=== PATIENT | female | born 1990 | race Caucasian/White ===

== ENCOUNTER → 2019-03-20 | Outpatient (CLI) | payer BC ==
--- NOTE | 2019-03-20 16:39 | FL ---
EXAMINATION TYPE: FL hysterosalpingography DATE OF EXAM: 03/20/2019 CLINICAL HISTORY: Infertility. TECHNIQUE: Fluoroscopy. No fluoroscopy time used. 10 cc of Omnipaque 210 was drawn but not injected COMPARISON: None. FINDINGS: Procedure of fluoroscopic assisted hysterosalpingogram explained to patient. Benefits, alte rnatives, and risks were discussed. Informed consent was obtained. Preprocedure interventional technologist image of pelvis shows no suspicious abnormality. Sterile technique utilized for pelvic exam. Speculum was introduced several times. There is adequate visualization of cervical os. The os continually points inferiorly and to the left, several attempts at repositioning were unsuccessful. It is cleansed several times with Betadine. Catheter despite mult iple attempts cannot be successfully placed through the cervical os into the endometrial canal. I exp lained to patient that project construction manager will have to do procedure as is more comfortable manipulating ce rvix then radiologist. There was tiny amount of bleeding from the cervical os on trying to position catheter into the endometrial canal. At this point procedure was terminated. It was explained patient will not be charged for today's procedure and to return when her obstetricia n is available to perform procedure. IMPRESSION: As Above.
== END | disposition home or self-care (01) ==
LOC: RADUSWWP 13:14
PROVIDERS: ATTEND Obstetrics & Gynecology Obstetrics
DX: N97.9 Female infertility, unspecified (principal)
CPT/HCPCS: 58340; 74740

== ENCOUNTER → 2019-05-08 | Outpatient (CLI) | payer BC ==
--- NOTE | 2019-05-08 10:01 | P.OP ---
Date of Procedure: 05/08/19 Preoperative Diagnosis: Family planning Postoperative Diagnosis: Same Procedure(s) Performed: Hysterosalpingogram Anesthesia: none Surgeon: Karoline De Leon Estimated Blood Loss (ml): 0 IV fluids (ml): 0 Urine output (ml): 0 Pathology: none sent Condition: stable Disposition: observation Indications for Procedure: This 28-year-old 0 has been trying for for multiple months without success. Patient is noted to have regular cycles and positive ovulation predictor kit. Patient presents today for evaluation of the uterine cavity and tubal patency. Operative Findings: Normal appearing uterine size, shape with spillage of radiopaque dye bilaterally, radiologist in room and confirms via fluoroscopy Description of Procedure: Patient was seen in the radiology suite. Procedure was reviewed and questions were answered. Patient was set in the Alexia lithotomy position a speculum exam was performed. The cervix was washed with Betadine 2. The hysterosalpingogram catheter was then placed through the cervix and toward the uterus the fundus was reached in the balloon was insufflated with approximately 5 mL of air. A syringe was then attached with radiopaque dye patient was positioned in a supine position fluoroscopy was begun and the dye was pushed toward the uterus. Uterine shape and size was normal tubal patency was noted bilaterally. Multiple pictures were taken radiology was in agreement that tubal patency was achieved. Patient was repositioned once again the balloon was let down and the catheter removed. The speculum was removed without difficulty. Next Patient tolerated procedure well
--- NOTE | 2019-05-08 12:49 | FL ---
EXAMINATION TYPE: FL hysterosalpingography DATE OF EXAM: 05/08/2019 HISTORY: Infertility. PROCEDURE: 4 fluoroscopic images were saved and 16 seconds of fluoroscopy time was utilized. The proc edure was performed in conjunction with Dr. De Leon who performed the procedure and myself, joselin Shelton erformed the fluoroscopy. A speculum was introduced and the external cervical os was localize. The e xternal cervical os was cleansed and a Betadine solution on [address] was introduced into the uterus and balloon insufflation device deployed. Approximately 3 cc of n onionic contrast was injected in a retrograde manner. The uterus has a normal size shape and appearance. No persistent uterine filling defects are seen. Both fallopian tubes fill with contrast normally. There is spill of contrast into the peritoneal cav ity bilaterally left greater than right. IMPRESSION: Normal hysterosalpingogram with bilateral spill of contrast into the peritoneal cavity.
== END | disposition home or self-care (01) ==
LOC: RADUSWWP 09:29
PROVIDERS: ATTEND Obstetrics & Gynecology Obstetrics
DX: N97.9 Female infertility, unspecified (principal)
CPT/HCPCS: 58340; 74740; Q9967